=== PATIENT | male | born 1980 | race Caucasian/White ===

== ENCOUNTER 2018-09-01 12:16 | Emergency (ER) | payer BC ==
[2018-09-01] MEDS ORDERED: NITROGLYCERIN SL TABS 0.4 MG TAB SUBLINGUAL PRN (12:37)
[2018-09-01] MEDS ORDERED: ASPIRIN 81 MG PO STA (12:37)
--- NOTE | 2018-09-01 12:46 | ED ---
General Adult HPI - General Chief complaint: Chest Pain Stated complaint: Chest pain Time Seen by Provider: 09/01/18 12:37 Source: patient Mode of arrival: ambulatory Limitations: no limitations - History of Present Illness Initial comments: Patient is a 38-year-old male presents with a chief complaint of chest pain. Patient states that this going on for about a day. He states started getting worse today. He describes a dull ache with periods of sharp pain. He cannot identify any inciting incident. He cannot identify any aggravating or alleviati ng factors. Timing is constant. The patient does admit to lightheadedness, nausea, diaphoresis. The patient states that he had a heart cath about 3 months ago which she was told that he had some stenosis of his LAD but did not require a stent. The patient is a smoker. - Related Data Home Medications Medication Instructions Recorded Confirmed No Known Home Medications 09/01/18 09/01/18 Allergies Allergy/AdvReac Type Severity Reaction Status Date / Time No Known Allergies Allergy Verified 09/01/18 18:22 Review of Systems ROS Statement: Those systems with pertinent positive or pertinent negative responses have been documented in the HPI. ROS Other: All systems not noted in ROS Statement are negative. Respiratory: Reports: dyspnea Cardiovascular: Reports: chest pain Past Medical History Past Medical History: Chest Pain / Angina, Hypertension History of Any Multi-Drug Resistant Organisms: None Reported Past Surgical History: Cholecystectomy, Heart Catheterization Additional Past Surgical History / Comment(s): pyloric stenosis as infant Past Psychological History: No Psychological Hx Reported Smoking Status: Current every day smoker Past Alcohol Use History: Occasional Past Drug Use History: None Reported General Exam Limitations: no limitations General appearance: alert, in no apparent distress Head exam: Present: atraumatic, normocephalic Eye exam: Present: normal appearance, PERRL ENT exam: Present: normal exam Neck exam: Present: normal inspection Respiratory exam: Present: normal lung sounds bilaterally. Absent: respiratory distress, wheezes Cardiovascular Exam: Present: regular rate, normal rhythm GI/Abdominal exam: Present: soft. Absent: distended, tenderness Rectal exam: Present: deferred Extremities exam: Present: normal inspection Back exam: Present: normal inspection Neurological exam: Present: alert, oriented X3 Psychiatric exam: Present: normal affect, normal mood Skin exam: Present: warm, dry, intact Course Vital Signs 09/01/18 09/01/18 09/01/18 12:30 13:55 14:53 Temperature 98.3 F Pulse Rate 89 80 80 Respiratory 20 18 18 Rate Blood Pressure 161/96 141/107 148/98 O2 Sat by Pulse 98 99 99 Oximetry 09/01/18 16:18 Temperature Pulse Rate 89 Respiratory 18 Rate Blood Pressure 151/95 O2 Sat by Pulse 97 Oximetry Medical Decision Making - Medical Decision Making Patient presents with a chief complaint of chest pain. On initial evaluation, and essential hypertension but otherwise stable. Patient to be evaluated with EKG, chest x-ray, basic labs including cardiac enzymes. He was given nitroglycerin for chest pain. EKG at 1258 shows normal sinus rhythm with a rate of 82 bpm, segmenter within normal limits, no acute signs of ischemia. 7:10 PM Laboratory evaluation of this patient is unremarkable. Troponins are negative 2. On reevaluation the patient is resting comfortably. At this time is stable for discharge. He was instructed to follow up with primary care in cardiology in one to 2 days, return to the ED if symptoms worsen or change. Patient states that he had a cardiac catheterization about 3 months ago, that time he did not require any intervention. - Lab Data Result diagrams: 09/01/18 13:03 09/01/18 13:03 Lab Results 09/01/18 09/01/18 09/01/18 Range/Units 13:03 13:03 13:03 WBC 10.4 (3.8-10.6) k/uL RBC 4.78 (4.30-5.90) m/uL Hgb 15.5 (13.0-17.5) gm/dL Hct 45.5 (39.0-53.0) % MCV 95.1 (80.0-100.0) fL MCH 32.3 (25.0-35.0) pg MCHC 34.0 (31.0-37.0) g/dL RDW 13.8 (11.5-15.5) % Plt Count 262 (150-450) k/uL Neutrophils % 60 % Lymphocytes % 29 % Monocytes % 6 % Eosinophils % 3 % Basophils % 0 % Neutrophils # 6.3 (1.3-7.7) k/uL Lymphocytes # 3.0 (1.0-4.8) k/uL Monocytes # 0.7 (0-1.0) k/uL Eosinophils # 0.3 (0-0.7) k/uL Basophils # 0.0 (0-0.2) k/uL D-Dimer (<0.60) mg/L FEU Sodium 140 (137-145) mmol/L Potassium 4.5 (3.5-5.1) mmol/L Chloride 109 H (98-107) mmol/L Carbon Dioxide 21 L (22-30) mmol/L Anion Gap 10 mmol/L BUN 11 (9-20) mg/dL Creatinine 0.70 (0.66-1.25) mg/dL Est GFR (CKD-EPI)AfAm >90 (>60 ml/min/1.73 sqM) Est GFR (CKD-EPI)NonAf >90 (>60 ml/min/1.73 sqM) Glucose 87 (74-99) mg/dL Calcium 10.1 (8.4-10.2) mg/dL Troponin I (0.000-0.034) ng/mL NT-Pro-B Natriuret Pep 35 pg/mL 09/01/18 09/01/18 09/01/18 Range/Units 13:03 13:03 15:50 WBC (3.8-10.6) k/uL RBC (4.30-5.90) m/uL Hgb (13.0-17.5) gm/dL Hct (39.0-53.0) % MCV (80.0-100.0) fL MCH (25.0-35.0) pg MCHC (31.0-37.0) g/dL RDW (11.5-15.5) % Plt Count (150-450) k/uL Neutrophils % % Lymphocytes % % Monocytes % % Eosinophils % % Basophils % % Neutrophils # (1.3-7.7) k/uL Lymphocytes # (1.0-4.8) k/uL Monocytes # (0-1.0) k/uL Eosinophils # (0-0.7) k/uL Basophils # (0-0.2) k/uL D-Dimer 0.30 (<0.60) mg/L FEU Sodium (137-145) mmol/L Potassium (3.5-5.1) mmol/L Chloride (98-107) mmol/L Carbon Dioxide (22-30) mmol/L Anion Gap mmol/L BUN (9-20) mg/dL Creatinine (0.66-1.25) mg/dL Est GFR (CKD-EPI)AfAm (>60 ml/min/1.73 sqM) Est GFR (CKD-EPI)NonAf (>60 ml/min/1.73 sqM) Glucose (74-99) mg/dL Calcium (8.4-10.2) mg/dL Troponin I <0.012 <0.012 (0.000-0.034) ng/mL NT-Pro-B Natriuret Pep pg/mL Disposition Clinical Impression: Chest pain Disposition: HOME SELF-CARE Condition: Good Instructions (If sedation given, give patient instructions): Chest Pain (ED) Is patient prescribed a controlled substance at d/c from ED?: No Referrals: Son Crenshaw MD [Primary Care Provider] - 1-2 days
[2018-09-01 13:18] LABS: Basophils % (A) 0 %; Eosinophils # (A) 0.3 k/uL (0-0.7); Eosinophils % (A) 3 %; HCT 45.5 % (39.0-53.0); HGB 15.5 gm/dL (13.0-17.5); Lymphocytes % (A) 29 %; MCH 32.3 pg (25.0-35.0); MCV 95.1 fL (80.0-100.0); Mean Platelet Volume 7.5; Monocytes # (A) 0.7 k/uL (0-1.0); Monocytes % (A) 6 %; Neutrophils # (A) 6.3 k/uL (1.3-7.7); Neutrophils % (A) 60 %; Platelet Count 262 k/uL (150-450); RBC 4.78 m/uL (4.30-5.90); RDW 13.8 % (11.5-15.5); WBC 10.4 k/uL (3.8-10.6)
[2018-09-01 13:25] LABS: African American GFR (CKD) >90 (>60 ml/min/1.73 sqM); Anion Gap 10 mmol/L; Blood Urea Nitrogen 11 mg/dL (9-20); Calcium 10.1 mg/dL (8.4-10.2); Carbon Dioxide 21 mmol/L (22-30); Chloride 109 mmol/L (98-107); Glucose 87 mg/dL (74-99); Potassium 4.5 mmol/L (3.5-5.1); Sodium 140 mmol/L (137-145)
--- NOTE | 2018-09-01 13:42 | XR ---
EXAMINATION TYPE: XR chest 2V DATE OF EXAM: 09/01/2018 COMPARISON: None INDICATION: Pain TECHNIQUE: Frontal and lateral views of the chest are obtained. FINDINGS: The heart size is normal. The pulmonary vasculature is normal. The lungs are clear. IMPRESSION: 1. No acute pulmonary process.
[2018-09-01 19:29] VITALS: BP 137/98; PULSE 65; RESP 20; TEMP 98.4
== END 2018-09-01 19:30 | disposition home or self-care (01) ==
LOC: EC 12:16
DX: R07.9 Chest pain, unspecified (principal); R42 Dizziness and giddiness; R11.0 Nausea; I10 Essential (primary) hypertension; F17.200 Nicotine dependence, unspecified, uncomplicated; Z95.5 Presence of coronary angioplasty implant and graft
CPT/HCPCS: 36415; 71046; 80048; 83880; 84484; 85025; 85379; 93005; 99285